=== PATIENT | female | born 1945 | race Caucasian/White ===

== ENCOUNTER → 2016-05-10 | Outpatient (CLI) | payer OTHER ==
--- NOTE | 2016-05-10 15:07 | MA ---
Diagnostic Digital Left Mammogram History: Possible new nodule central left breast seen only on the oblique lateral view. Comparison: Screening mammogram April 22, 2016. Technique: A spot compression view in the MLO projection of the left breast. Breast Density: C Findings: The nodule does not obviously persist but could be obscured by moderately dense breast pare nchyma. Impression: We will proceed with ultrasound, considering the history of contralateral breast cancer. BI-RADS: Category 0 . Further imaging with ultrasound.
--- NOTE | 2016-05-10 15:37 | US ---
Left Breast Ultrasound him a complete History: Possible new nodule seen on recent screening mammogram, patient has a history of contralater al breast cancer Comparison: diagnostic mammogram earlier today, screening mammogram April 22, 2016 Technique: I first performed a directed physical examination. This was followed by ultrasound exam with a high frequency linear transducer. Findings: Physical examination of the entire breast and axilla is negative. Ultrasound of the entire breast and axilla is negative. There is no sonographic cyst, mass or architectural distortion. Impression: Negative left breast sonogram. Recommendation colon screening mammography in April 2017. Results and recommendation were discussed with the patient in detail, who is in agreement with the pl an.
== END ==
LOC: FIMAGING 14:35
DX: R93.8 Abnormal findings on diagnostic imaging of other specified body structures (principal)
CPT/HCPCS: 76641; G0206

== ENCOUNTER → 2017-09-14 | Outpatient (CLI) | payer OTHER | LOC: CIMAGING 12:05 | PROVIDERS: ATTEND Obstetrics & Gynecology Gynecology | DX: Z12.31 Encounter for screening mammogram for malignant neoplasm of breast (principal) ==